=== PATIENT | male | born 1985 | race Caucasian/White ===

== ENCOUNTER 2016-07-31 21:20 | Emergency (ER) | payer OTHER ==
[~2016-07-31] VITALS: Ht 180.3 cm; Wt 90.7 kg
[2016-07-31 21:48] VITALS: BP 138/86
[2016-07-31 22:50] VITALS: BP 132/80
[2016-07-31] MEDS ORDERED: EPIPEN 2-P0.3 MG/0.3 IM (23:29)
[2016-07-31] MEDS ORDERED: PREDNISONE20 MG ORAL (23:29)
[2016-07-31] MEDS ORDERED: PredniSONE 20mg tab ORAL ONE (23:30)
[2016-07-31 23:38] VITALS: BP 130/80
--- NOTE | 2016-08-01 00:50 | Emergency Room Report ---
History of Present Illness General Chief Complaint: Allergic Reaction Source: Patient Present Illness HPI 30 YO M with allegedly having allergic reaction to whole body s/p injecting heroin in right arm. Patient endorses red itchy rash to arms, legs, chest, neck. Denies SOB, throat tightness, difficult swallowing. Went to [facility], bought and took 2 benadryl with improvement in symptoms by time he came to ED. Has been injecting heroin for long time, never had reaction before. Only known allergies to Penicillin. Asymptomatic currently. Allergies: Coded Allergies: LORATADINE (Verified Allergy, Unknown, 07/31/16) PENICILLIN G (Verified Allergy, Unknown, 07/31/16) Patient History Past Medical History: none Past Surgical History: none Pertinent Family History: none Social History: Reports: drug use Immunizations: UTD Reviewed Nursing Documentation: PMH: Agreed, PSxH: Agreed Nursing Documentation-PMH Past Medical History: No Stated History Review of Systems All Other Systems: negative except mentioned in HPI Physical Exam Vital Signs Date Time Temp Pulse Resp B/P Pulse Ox O2 Delivery O2 Flow Rate FiO2 07/31/16 21:37 97.7 69 15 138/86 98 Room Air Sp02 EP Interpretation: reviewed, normal General Appearance: normal inspection, well appearing, no apparent distress, alert, GCS 15, non-toxic Head: normocephalic, atraumatic Eyes: bilateral eye EOMI, bilateral eye PERRL ENT: normal ENT inspection, hearing grossly normal, normal voice Neck: normal inspection, full range of motion, supple, no bony tend Respiratory: normal inspection, lungs clear, normal breath sounds, no respiratory distress, no retraction, no wheezing Cardiovascular #1: regular rate, rhythm, no edema Gastrointestinal: normal inspection, normal bowel sounds, non tender, soft, no guarding, no hernia Genitourinary: no CVA tenderness Musculoskeletal: normal inspection, back normal, normal range of motion, Cristina' s Sign negative, other - multiple track drummond bilateral upper extremities. No associated signs of infection Neurologic: normal inspection, alert, responsive, speech normal Skin: normal inspection, normal color, no rash, warm/dry Medical Decision Making Diagnostic Impression: Primary Impression: Allergic reaction Qualified Codes: T78.40XA - Allergy, unspecified, initial encounter ER Course 30 YO M with allegedly allergic reaction locally s/p IVDU heroin. VSS> Afebrile. Asymptomatic currently Airway patent No rash visualized currently Not in anaphylaxis Gave patient prednisone here, observed for period of time to ensure no recurrence DC with prednisone, Epi pen Advised to STOP injecting heroin given possible new allergy Last Vital Signs Date Time Temp Pulse Resp B/P Pulse Ox O2 Delivery O2 Flow Rate FiO2 07/31/16 23:38 130/80 07/31/16 22:50 98.0 81 18 99 Room Air Status: improved Disposition: HOME, SELF-CARE Condition: Improved Scripts Epinephrine (Epipen 2-Girish) 0.3 Mg/0.3 Ml Auto.injct 0.3 MG IM ONCE for 1 Day, #2 EA Prov: WALLY HOLM M.D. 07/31/16 Prednisone* (PREDNISONE*) 20 Mg Tablet 20 MG ORAL BID for 3 Days, #6 TAB Prov: WALLY HOLM M.D. 07/31/16 Referrals: NON PHYSICIAN (PCP) Patient Instructions: Anaphylactic Reaction, [id number] Additional Instructions: - Take prednisone twice a day for 3 days - Fill Rx for Epi pen and inject in outter left/right thigh for severe allergic reaction - If symptoms happen again, take a benadryl and go to WALLY MIRANDA M.D. Aug 01, 2016 00:50
== END 2016-07-31 23:39 | disposition home or self-care (01) ==
LOC: EMR 22:15
DX: T78.40XA Allergy, unspecified, initial encounter (principal); X58.XXXA Exposure to other specified factors, initial encounter; Z88.0 Allergy status to penicillin; Z88.8 Allergy status to other drugs, medicaments and biological substances
CPT/HCPCS: 99282